=== PATIENT | male | born 1970 | race Caucasian/White ===

== ENCOUNTER 2017-02-10 16:32 | Emergency (ER) | payer BC ==
[2017-02-10] MEDS: Nitroglycerin 0.4 MG Tab.SL SL PRN ×2 (16:40→16:45)
[2017-02-10] MEDS ORDERED: Nitroglycerin 0.4 MG Tab.SL ONE (16:41)
[2017-02-10] MEDS ORDERED: Aspirin 81 MG Tab.Chew PO ONE (16:50)
[2017-02-10] MEDS ORDERED: Heparin Sodium 5,000 Units/ML Vial IVPUSH ONE (16:54)
[2017-02-10] MEDS ORDERED: Clopidogrel 75 MG Tab PO ONE (16:56)
[2017-02-10] MEDS ORDERED: Sodium Chloride 0.9% 1,000 ML IV SCH (17:00)
[2017-02-10] MEDS ORDERED: Morphine 2 MG/ML Syringe IVPUSH ONE (17:03)
[2017-02-10] MEDS ORDERED: Morphine 2 MG/ML Syringe ONE (17:04)
[2017-02-10] MEDS ORDERED: Nitroglycerin/D5W 25 MG/250 ML BOTTLE ONE (17:07)
[2017-02-10] MEDS ORDERED: Nitroglycerin/D5W 25 MG/250 ML BOTTLE IV SCH (17:15)
--- NOTE | 2017-02-10 17:23 | EDM.PDOC ---
ED HPI GENERAL MEDICAL PROBLEM - General Chief Complaint: Cardiovascular Problem Stated Complaint: CHEST PAIN Time Seen by Provider: 02/10/17 16:50 Source of Information: Reports: Patient, Family History Limitations: Reports: No Limitations - History of Present Illness INITIAL COMMENTS - FREE TEXT/NARRATIVE: pt has had 1 hrs worth of precordial chest pain. This is the first time he has had pain like this. He was mildly sob. He is a known diabetic. Onset: Today, Sudden Duration: Other ( Pt had an hours of chest pain) Location: Reports: Chest Associated Symptoms: Reports: Chest Pain, Shortness of Breath - Related Data Allergies Allergy/AdvReac Type Severity Reaction Status Date / Time No Known Allergies Allergy Verified 02/10/17 16:51 Home Meds: Home Meds Allopurinol [Zyloprim] 02/10/17 [History] Citalopram [Citalopram HBr] 02/10/17 [History] Methotrexate Sodium [Methotrexate] 02/10/17 [History] atorvaSTATin Calcium [Atorvastatin Calcium] 02/10/17 [History] glipiZIDE [Glucotrol XL] 02/10/17 [History] Past Medical History Cardiovascular History: Reports: High Cholesterol, Hypertension Endocrine/Metabolic History: Reports: Diabetes, Type II - Past Surgical History Other GI Surgeries/Procedures: spenectomy Social & Family History - Tobacco Use Smoking Status *Q: Current Every Day Smoker Years of Tobacco use: 15 Packs/Tins Daily: 0.2 ED ROS GENERAL - Review of Systems Review Of Systems: See Below Constitutional: Reports: No Symptoms HEENT: Reports: No Symptoms Respiratory: Reports: Shortness of Breath Cardiovascular: Reports: Chest Pain Endocrine: Reports: No Symptoms GI/Abdominal: Reports: No Symptoms : Reports: No Symptoms Musculoskeletal: Reports: No Symptoms Skin: Reports: No Symptoms Neurological: Reports: No Symptoms Psychiatric: Reports: No Symptoms ED EXAM, GENERAL - Physical Exam Exam: See Below Free Text/Narrative:: pt arrived with a history of 1 hour of chest pain. He had gotten very diaroretic. he had been cutting and splitting wood today,He has a history of high cholestrol and he smokes. Exam Limited By: No Limitations General Appearance: Alert, Anxious, Severe Distress Ears: Normal TMs Nose: Normal Inspection Throat/Mouth: Normal Inspection Head: Atraumatic Neck: Normal Inspection Respiratory/Chest: No Respiratory Distress Cardiovascular: Regular Rate, Rhythm, Other (ptis having severe chest pain. ) GI/Abdominal: Soft, Non-Tender (Male) Exam: Deferred Back Exam: Normal Inspection Extremities: Normal Inspection Neurological: Alert, Oriented, Normal Cognition Psychiatric: Anxious Course - Vital Signs Last Recorded V/S: Last Vital Signs Temp 35.8 C 02/10/17 17:11 Pulse 84 02/10/17 17:11 Resp 11 L 02/10/17 17:11 BP 133/82 02/10/17 17:29 Pulse Ox 95 02/10/17 17:11 - Orders/Labs/Meds Orders: Active Orders 24 hr Category Date Time Status EKG Documentation Completion [RC] ASDIRECTED Care 02/10/17 16:49 Active EKG Documentation Completion [RC] ASDIRECTED Care 02/10/17 16:49 Active Chest 1V Frontal [CR] Stat Exams 02/10/17 17:04 Taken EKG 12 Lead [EK] Routine Ther 02/10/17 16:49 Ordered EKG 12 Lead [EK] Routine Ther 02/10/17 16:49 Ordered Labs: Laboratory Tests 02/10/17 02/10/17 02/10/17 Range/Units 16:50 16:50 16:50 WBC 23.4 H (4.5-11.0) K/uL RBC 5.10 (4.30-5.90) M/uL Hgb 16.6 H (12.0-15.0) g/dL Hct 49.1 (40.0-54.0) % MCV 96 (80-98) fL MCH 33 H (27-31) pg MCHC 34 (32-36) % Plt Count 456 H (150-400) K/uL Neut % (Auto) 78 H (36-66) % Lymph % (Auto) 14 L (24-44) % [place] % (Auto) 8 H (2-6) % Eos % (Auto) 0 L (2-4) % Baso % (Auto) 0 (0-1) % PT 11.1 (9.5-12.0) sec INR 1.04 (0.80-1.20) APTT 22.7 L (27.0-36.0) sec Sodium (140-148) mmol/L Potassium (3.6-5.2) mmol/L Chloride (100-108) mmol/L Carbon Dioxide (21-32) mmol/L Anion Gap (5.0-14.0) mmol/L BUN (7-18) mg/dL Creatinine (0.8-1.3) mg/dL Est Cr Clr Drug Dosing mL/min Estimated GFR (MDRD) (>60) Glucose (74-106) mg/dL Calcium (8.5-10.1) mg/dL Total Bilirubin (0.2-1.0) mg/dL AST (15-37) U/L ALT (12-78) U/L Alkaline Phosphatase (46-116) U/L Creatine Kinase (39-308) U/L Troponin I 0.108 H* (0.000-0.056) ng/mL Total Protein (6.4-8.2) g/dL Albumin (3.4-5.0) g/dL Globulin (2.3-3.5) g/dL Albumin/Globulin Ratio (1.2-2.2) 02/10/ Range/Units 16:50 WBC (4.5-11.0) K/uL RBC (4.30-5.90) M/uL Hgb (12.0-15.0) g/dL Hct (40.0-54.0) % MCV (80-98) fL MCH (27-31) pg MCHC (32-36) % Plt Count (150-400) K/uL Neut % (Auto) (36-66) % Lymph % (Auto) (24-44) % [place] % (Auto) (2-6) % Eos % (Auto) (2-4) % Baso % (Auto) (0-1) % PT (9.5-12.0) sec INR (0.80-1.20) APTT (27.0-36.0) sec Sodium 139 L (140-148) mmol/L Potassium 4.3 (3.6-5.2) mmol/L Chloride 103 (100-108) mmol/L Carbon Dioxide 27 (21-32) mmol/L Anion Gap 13.3 (5.0-14.0) mmol/L BUN 22 H (7-18) mg/dL Creatinine 1.1 (0.8-1.3) mg/dL Est Cr Clr Drug Dosing 84.80 mL/min Estimated GFR (MDRD) > 60 (>60) Glucose 188 H (74-106) mg/dL Calcium 9.0 (8.5-10.1) mg/dL Total Bilirubin 0.3 (0.2-1.0) mg/dL AST 32 (15-37) U/L ALT 76 (12-78) U/L Alkaline Phosphatase 82 (46-116) U/L Creatine Kinase 173 (39-308) U/L Troponin I (0.000-0.056) ng/mL Total Protein 7.7 (6.4-8.2) g/dL Albumin 3.9 (3.4-5.0) g/dL Globulin 3.8 H (2.3-3.5) g/dL Albumin/Globulin Ratio 1.0 L (1.2-2.2) Meds: Medications Discontinued Medications Generic Name Dose Route Start Last Admin Trade Name Freq PRN Reason Stop Dose Admin Aspirin 162 mg 02/10/17 16:50 02/10/17 16:45 Aspirin PO 02/10/17 16:51 162 mg ONETIME ONE Administration Clopidogrel Bisulfate 600 mg 02/10/17 16:56 02/10/17 17:00 Plavix PO 02/10/17 16:57 600 mg ONETIME ONE Administration Heparin Sodium (Porcine) 4,000 units 02/10/17 16:54 02/10/17 16:55 Heparin Sodium IVPUSH 02/10/17 16:55 4,000 units ONETIME ONE Administration Sodium Chloride 1,000 mls @ 250 mls/hr 02/10/17 17:00 02/10/17 16:40 Normal Saline IV 250 mls/hr ASDIRECTED AGA Administration Nitroglycerin/Dextrose 25 mg in 250 mls @ 6 mls/hr 02/10/17 17:15 02/10/17 17 :29 Nitroglycerin 25 Mg/D5w 250 Ml IV 10 mcg/min TITRATE AGA 6 mls/hr Protocol Administration 10 MCG/MIN Nitroglycerin/Dextrose Confirm 02/10/17 17:07 02/10/17 17:29 Nitroglycerin 25 Mg/D5w 250 Ml Administered 02/10/17 17:08 Not Given Dose 25 mg in 250 mls @ as directed .ROUTE .STK-MED ONE Morphine Sulfate 2 mg 02/10/17 17:03 02/10/17 17:05 Morphine IVPUSH 02/10/17 17:04 2 mg ONETIME ONE Administration Morphine Sulfate Confirm 02/10/17 17:04 02/10/17 17:27 Morphine Administered 02/10/17 17:05 Not Given Dose 2 mg .ROUTE .STK-MED ONE Nitroglycerin Confirm 02/10/17 16:41 02/10/17 17:27 Nitrostat Administered 02/10/17 16:42 Not Given Dose 0.4 mg .ROUTE .STK-MED ONE Nitroglycerin 0.4 mg 02/10/17 16:49 02/10/17 16:45 Nitrostat SL 0.4 mg Q5M PRN Administration Chest Pain - Re-Assessments/Exams Free Text/Narrative Re-Assessment/Exam: 02/10/17 17:45 pt was given asa, plavix 600mg, nitro q 5min, he had a 250 cc bolus, a tridil drip was started. He was given morphine 2 mg. He was much more comfortable at the time of transfer. Departure - Departure Time of Disposition: 17:30 Disposition: DC/Tfer to Acute Hospital 02 Reason for Transfer *Q: Primary PCI Indicated Condition: Fair Clinical Impression: Acute inferior myocardial infarction Referrals: Herb Link MD [Primary Care Provider] - Forms: ED Department Discharge Care Plan Goals: transfered to [facility]. - My Orders Last 24 Hours: My Active Orders 02/10/17 16:49 EKG Documentation Completion [RC] ASDIRECTED EKG Documentation Completion [RC] ASDIRECTED EKG 12 Lead [EK] Routine EKG 12 Lead [EK] Routine 02/10/17 17:04 Chest 1V Frontal [CR] Stat - Assessment/Plan Last 24 Hours: My Active Orders 02/10/17 16:49 EKG Documentation Completion [RC] ASDIRECTED EKG Documentation Completion [RC] ASDIRECTED EKG 12 Lead [EK] Routine EKG 12 Lead [EK] Routine 02/10/17 17:04 Chest 1V Frontal [CR] Stat
--- NOTE | 2017-02-12 09:50 | CR ---
Chest 1V Frontal HISTORY: Chest pain. Comparison: None. FINDINGS: Cardiac size and pulmonary vessels are normal. The lungs are clear. IMPRESSION: Negative AP chest.
== END 2017-02-10 17:15 ==
LOC: JP.ED 16:32
DX: I21.19 ST elevation (STEMI) myocardial infarction involving other coronary artery of inferior wall (principal); E11.9 Type 2 diabetes mellitus without complications; I10 Essential (primary) hypertension; E78.00 Pure hypercholesterolemia, unspecified; F17.210 Nicotine dependence, cigarettes, uncomplicated
CPT/HCPCS: 36415; 71010; 80053; 82550; 84484; 85025; 85610; 85730; 93005; 96361; 96374; 96375; 99285; A9270; J1644; J2270; J7040

== ENCOUNTER 2022-01-20 09:54 | Day surgery (SDC) | payer BC ==
[2022-01-20] MEDS ORDERED: Midazolam 1 MG/ML 2 ML SDV ONE (10:40)
[2022-01-20] MEDS ORDERED: Propofol 200 MG/20 ML SDV ONE (10:40)
[2022-01-20] MEDS ORDERED: Sodium Chloride 0.9% 1,000 ML IV SCH (10:45)
== END 2022-01-20 13:45 | disposition home or self-care (01) ==
LOC: JP.SDS 09:54
PROVIDERS: ATTEND Surgery
DX: Z12.11 Encounter for screening for malignant neoplasm of colon (principal); I25.10 Atherosclerotic heart disease of native coronary artery without angina pectoris; G47.33 Obstructive sleep apnea (adult) (pediatric); E66.9 Obesity, unspecified; E11.9 Type 2 diabetes mellitus without complications; Z68.34 Body mass index [BMI] 34.0-34.9, adult
CPT/HCPCS: 45378; J2250; J2704; J7030